=== PATIENT | female | born 1955 | race Caucasian/White ===

== ENCOUNTER 2018-05-18 06:58 | Day surgery (SDC) | payer BC ==
[2018-05-18] MEDS ORDERED: PROPOFOL 500 MG/50 ML EMU IV ONE (07:31)
[2018-05-18] MEDS ORDERED: LIDOCAINE HCL 1% MPF 30 SOL ONE (07:32)
[2018-05-18] MEDS ORDERED: ONDANSETRON HCL 4 MG/2 ML SOL ONE (07:53)
[2018-05-18 09:02] VITALS: TEMP 97.7
[2018-05-18 09:24] VITALS: O2SAT 98
[2018-05-18 09:31] VITALS: BP 127/86; PULSE 60; RESP 20
== END 2018-05-18 09:42 | disposition home or self-care (01) ==
LOC: SURG 06:58
PROVIDERS: ATTEND Internal Medicine Gastroenterology
DX: Z12.11 Encounter for screening for malignant neoplasm of colon (principal); Z80.3 Family history of malignant neoplasm of breast; L53.8 Other specified erythematous conditions; K64.8 Other hemorrhoids
CPT/HCPCS: 99001; J2405; J2001; J2704

== ENCOUNTER 2019-03-01 10:08 | Day surgery (SDC) | payer BC ==
[2019-03-01] MEDS ORDERED: ACETAZOLAMIDE 250 MG PO ONE (10:09)
[2019-03-01] MEDS ORDERED: MIDAZOLAM HYDROCHLORIDE 10 MG/5 ML SOL PO ONE (10:11)
[2019-03-01] MEDS: CYCLOPENTOLATE 1% SOL ONE ×2 (10:42→10:58)
[2019-03-01] MEDS: PHENYLEPHRINE HCL 10% OPHTHAL SOL ONE ×2 (10:42→10:58)
[2019-03-01] MEDS: TETRACAINE HCL 0.5 % OPHTH 1 DROP SOL ONE ×3 (10:42→12:02)
[2019-03-01] MEDS: KETOROLAC 0.5% OPTH 60 DROP SOL ONE ×2 (10:43→10:58)
[2019-03-01] MEDS ORDERED: TRIMOXI ONE (11:55)
[2019-03-01] MEDS ORDERED: LIDOCAINE HCL 1% MPF 30 SOL ONE (11:56)
[2019-03-01] MEDS ORDERED: BSS 500 ML 500 ML IR ONE (11:56)
[2019-03-01] MEDS: POVIDONE IODINE 5% SOL ONE ×2 (12:03→12:05)
[2019-03-01 12:36] VITALS: BP 132/65; PULSE 70; RESP 18; TEMP 97.4; O2SAT 96
== END 2019-03-01 12:48 | disposition home or self-care (01) ==
LOC: SURG 10:08
PROVIDERS: ATTEND Ophthalmology
DX: H25.89 Other age-related cataract (principal)
CPT/HCPCS: A9270-GY; J2001